=== PATIENT | male | born 1960 | race Caucasian/White ===

== ENCOUNTER 2020-01-29 22:05 | Observation (INO) | payer BC ==
[2020-01-29] MEDS ORDERED: DILTIAZEM HCL/D5W 0 MG/0 ML RTUINJ IV ONE (22:12)
[2020-01-29] MEDS ORDERED: DILTIAZEM HCL INJ 25 MG/5 ML VIAL ONE (22:12)
[2020-01-29] MEDS ORDERED: METOPROLOL TARTRATE PF/INJ 5 MG/5 ML SDV IV ONE (22:19)
[2020-01-29] MEDS ORDERED: ENOXAPARIN SODIUM INJ 100 MG/1 ML DISP.SYRIN SUBCUT ONE (22:31)
[2020-01-29] MEDS ORDERED: METOPROLOL TARTRATE 25 MG TABLET PO ONE (22:33)
--- NOTE | 2020-01-29 22:38 | ER Document Report ---
ED General - General Chief Complaint: Palpitations Stated Complaint: PALPITATIONS - HPI Notes: 59-year-old male history of hypertension, type 2 diabetes now resolved after weight loss presents with approximately 2 hours of palpitations. Patient feels his heart beating fast and irregularly. Patient denies this ever having happened before. Patient says he has no other symptoms and has otherwise felt well until his heartbeat became rapid. Patient denies chest pain, shortness of breath, A. fib/arrhythmia history, cardiac history, lower extremity edema, recent trauma/significant travel ([address])/surgery, hypercoag history in self or family, fever, cough, urinary/GI symptoms, prior bleeding problems - Related Data Allergies/Adverse Reactions: No Known Allergies Allergy (Unverified 01/29/20 22:10) Past Medical History - General Information source: Patient - Social History Smoking Status: Former Smoker Frequency of alcohol use: None Drug Abuse: None Family History: Reviewed & Not Pertinent Patient has homicidal ideation: No Review of Systems - Review of Systems Notes: REVIEW OF SYSTEMS: CONSTITUTIONAL : Denies fever, chills, or sweats. EENT: Denies recent cold/sinus symptoms, denies throat pain CARDIOVASCULAR: Denies chest pain, EMILI RESPIRATORY: Denies cough, denies shortness of breath. GASTROINTESTINAL: Denies abdominal pain, nausea/vomiting. GENITOURINARY: Denies difficulty urinating, painful urination. MUSCULOSKELETAL: Denies neck pain, back pain. SKIN: Denies rash or skin lesions. HEMATOLOGIC : Denies easy bruising or bleeding. LYMPHATIC: Denies swollen, enlarged glands. NEUROLOGICAL: Denies headache, denies change in gait. PSYCHIATRIC: Denies anxiety or stress or depression. Physical Exam - Vital signs Vitals: Temp Pulse Resp BP Pulse Ox 98.8 F 154 H 18 158/110 H 95 01/29/20 22:05 01/29/20 22:05 01/29/20 22:05 01/29/20 22:05 01/29/20 22:05 - Notes Notes: PHYSICAL EXAMINATION: GENERAL: Well-appearing, well-nourished and in no acute distress. HEAD: Atraumatic, normocephalic. EYES: Pupils equal round and appropriate constriction, sclera anicteric, conjunctiva are normal. ENT: nares patent, moist mucous membranes. NECK: Normal range of motion, supple without lymphadenopathy LUNGS: Breath sounds clear to auscultation bilaterally and equal. No wheezes rales or rhonchi. HEART: Accelerated irregular rate without murmurs ABDOMEN: Soft, nontender, no guarding, no masses, no CVAT EXTREMITIES: Normal range of motion, no pitting or edema. No cyanosis. NEUROLOGICAL: Awake, alert, conversing appropriately, moves all extremities spontaneously. PSYCH: Normal mood, normal affect. SKIN: Warm, Dry, normal turgor, no rashes or lesions noted. Course - Re-evaluation Re-evalutation: 01/29/20 22:36 Very well-appearing male with rapid A. fib, hemodynamically stable, no signs on history or physical for this precipitated by sepsis/thyroid storm/PE, will give metoprolol for rate control and anticoagulate and admit for work-up of new onset A. fib/echo. 01/29/20 23:56 Attempted rate control with metoprolol IV and p.o. which improved rate to 140s but given insufficient rate control added diltiazem bolus and drip. Discussed case with Dr. Brody who accepts patient to [facility]. 01/30/20 00:52 At patient's request, I called his and updated her as to what was going on with his care. She asked whether the patient needed to be transferred and I informed her that given that there is no sign that he would need emergent catheterization or other cardiac intervention that the inpatient team here was capable of managing him unless his clinical picture changed. - Vital Signs Vital signs: Temp Pulse Resp BP Pulse Ox 98.3 F 154 H 28 H 128/92 H 98 01/29/20 22:18 01/29/20 22:05 01/29/20 23:51 01/29/20 23:51 01/29/20 23:51 - Laboratory Result Diagrams: 01/29/20 21:43 01/29/20 21:43 Laboratory results interpreted by me: 01/29/20 01/29/20 21:43 21:43 WBC 13.8 H Hgb 17.3 H MCHC 36.1 H Absolute Lymphs (auto) 6.0 H Glucose 236 H Total Protein 8.4 H Albumin 5.1 H Discharge - Discharge Clinical Impression: Rapid atrial fibrillation Condition: Fair Disposition: ADMITTED INPATIENT Admitting Provider: Ronn (Hospitalist) Unit Admitted: [facility]
--- NOTE | 2020-01-29 22:45 | RADIOLOGY REPORT (SQ) ---
XR CHEST 1 VIEW HISTORY: Chest pain. COMPARISON: None. FINDINGS: The heart size is within normal limits. There is no pulmonary vascular congestion. No consolidation, pleural effusion, or pneumothorax is seen. The bony structures are preserved. IMPRESSION: No evidence of acute cardiopulmonary disease.
[2020-01-29 23:00] LABS: INTERNATIONAL RATION (INR) 0.92; PROTHROMBIN TIME 12.3 SEC (11.4-15.4)
[2020-01-29 23:08] LABS: ALBUMIN 5.1 g/dL (3.5-5.0); ALKALINE PHOSPHATASE 85 U/L (38-126); ANION GAP 13 (5-19); ASPARTATE AMINO TRANSFERASE 27 U/L (17-59); BILIRUBIN,TOTAL 0.7 mg/dL (0.2-1.3); BLOOD UREA NITROGEN 17 mg/dL (7-20); CALCIUM 10.1 mg/dL (8.4-10.2); CARBON DIOXIDE 26 mmol/L (22-30); CHLORIDE 99 mmol/L (98-107); CREATINE KINASE 107 U/L (55-170); GLUCOSE 236 mg/dL (75-110); POTASSIUM 3.6 mmol/L (3.6-5.0); TOTAL PROTEIN 8.4 g/dL (6.3-8.2)
[2020-01-29 23:10] LABS: ABSOLUTE BASOPHILS # (AUTO) 0.1 10^3/uL (0.0-0.2); ABSOLUTE EOSINOPHILS # (AUTO) 0.3 10^3/uL (0.0-0.6); ABSOLUTE NEUT (AUTO) 6.3 10^3/uL (1.7-8.2); BASOPHILS % (AUTO) 0.8 % (0-2); EOSINOPHILS % (AUTO) 2.2 % (0-6); HEMOGLOBIN 17.3 g/dL (13.5-17.0); LYMPHOCYTES % (AUTO) 43.9 % (13-45); MEAN CORPUSCULAR HEMOGLOBIN 33.4 pg (27.0-33.4); MEAN CORPUSCULAR HGB CONC 36.1 g/dL (32.0-36.0); MEAN CORPUSCULAR VOLUME 93 fl (80-97); MONOCYTES % (AUTO) 7.4 % (3-13); PLATELET COUNT 346 10^3/uL (150-450); RED BLOOD COUNT 5.19 10^6/uL (4.35-5.55); RED CELL DISTRIBUTION WIDTH 12.2 % (11.5-14.0); SEGMENTED NEUTROPHILS % (AUTO) 45.7 % (42-78); TOTAL CELLS COUNTED % (AUTO) 100 %; WHITE BLOOD COUNT 13.8 10^3/uL (4.0-10.5)
[2020-01-29 23:19] LABS: TROPONIN I < 0.012 ng/mL
[2020-01-29] MEDS ORDERED: NORMAL SALINE 1000 ML 1,000 ML IV ONE (23:22)
[2020-01-29] MEDS ORDERED: DILTIAZEM HCL INJ 25 MG/5 ML VIAL IV ONE (23:45)
[2020-01-29] MEDS ORDERED: DILTIAZEM HCL/D5W 125 MG/125 ML RTUINJ IV PRN (23:47)
[2020-01-29] MEDS ORDERED: ACETAMINOPHEN 325 MG TABLET PO PRN (23:53)
[2020-01-30] MEDS ORDERED: DILTIAZEM HCL/D5W 125 MG/125 ML RTUINJ IV PRN (02:41)
--- NOTE | 2020-01-30 05:50 | PDOC H&P ---
History of Present Illness Admission Date/PCP: 01/30/20 00:09 Patient complains of: Palpitations History of Present Illness: DEIDRA PEREZ is a 59 year old male with a past medical history of diet- controlled diabetes and hypertension who is [place] staying [place] property. Presents approximately 1 hour after the onset of palpitations which began after a meal. In the emergency department he is found to be in A. fib with RVR in the 160s. A trial of Lopressor is attempted without significant improvement he started on IV diltiazem with rate control and referred to the hospitalist for admission. Patient denies previous episode, new medication, we ight loss, heat or cold intolerance, excessive alcohol, caffeine, energy drinks, new prescribed or [id number] medication. He remains in atrial fibrillation with a rate in the 90s denying pain or shortness of breath. Past Medical History Cardiac Medical History: Reports: Hypertension Endocrine Medical History: Reports: Diabetes Mellitus Type 2 Psychiatric Medical History: Denies: Alcohol Dependency, Depression, General Anxiety Disorder, Tobacco Dependency Past Surgical History Past Surgical History: Reports: None Social History Information Source: Patient Lives with: Spouse/Significant other Smoking Status: Former Smoker Frequency of Alcohol Use: Social Drugs: None - Advance Directive Resuscitation Status: Full Code Family History Family History: CAD, Hypertension, Other - Atrial fibrillation Parental Family History Reviewed: Yes Children Family History Reviewed: Yes Sibling(s) Family History Reviewed.: Yes Medication/Allergy Allergies/Adverse Reactions: No Known Allergies Allergy (Unverified 01/29/20 22:10) Review of Systems Constitutional: ABSENT: chills, fever(s), headache(s), weight gain, weight loss Eyes: ABSENT: visual disturbances Ears: ABSENT: hearing changes Cardiovascular: ABSENT: chest pain, dyspnea on exertion, edema, orthropnea, palpitations Respiratory: ABSENT: cough, hemoptysis Gastrointestinal: ABSENT: abdominal pain, constipation, diarrhea, hematemesis, hematochezia, nausea, vomiting Genitourinary: ABSENT: dysuria, hematuria Musculoskeletal: ABSENT: joint swelling Integumentary: ABSENT: rash, wounds Neurological: ABSENT: abnormal gait, abnormal speech, confusion, dizziness, focal weakness, syncope Psychiatric: ABSENT: anxiety, depression, homidical ideation, suicidal ideation Endocrine: ABSENT: cold intolerance, heat intolerance, polydipsia, polyuria Hematologic/Lymphatic: ABSENT: easy bleeding, easy bruising Physical Exam Vital Signs: Temp Pulse Resp BP Pulse Ox 97.8 F 79 20 127/79 H 87 L 01/30/20 03:10 01/30/20 05:18 01/30/20 03:10 01/30/20 05:00 01/30/20 05:18 Intake & Output 01/28/20 01/29/20 01/30/20 11:59 11:59 11:59 Intake Total 1009 Balance 1009 Weight 93 kg General appearance: PRESENT: no acute distress, well-developed, well-nourished, other - Facial sunburn admits recent excessive exposure. Head exam: PRESENT: atraumatic, normocephalic Eye exam: PRESENT: conjunctiva pink, EOMI, PERRLA. ABSENT: scleral icterus Ear exam: PRESENT: normal external ear exam Mouth exam: PRESENT: moist, tongue midline Neck exam: ABSENT: carotid bruit, JVD, lymphadenopathy, thyromegaly Respiratory exam: PRESENT: clear to auscultation wes. ABSENT: rales, rhonchi, wheezes Cardiovascular exam: PRESENT: irregular rhythm. ABSENT: diastolic murmur, rubs, systolic murmur Pulses: PRESENT: normal dorsalis pedis pul Vascular exam: PRESENT: normal capillary refill GI/Abdominal exam: PRESENT: normal bowel sounds, soft. ABSENT: distended, guarding, mass, organolmegaly, rebound, tenderness Rectal exam: PRESENT: deferred Extremities exam: PRESENT: full ROM. ABSENT: calf tenderness, clubbing, pedal edema Neurological exam: PRESENT: alert, awake, oriented to person, oriented to place, oriented to time, oriented to situation, CN II-XII grossly intact. ABSENT: motor sensory deficit Psychiatric exam: PRESENT: appropriate affect, normal mood. ABSENT: homicidal ideation, suicidal ideation Skin exam: PRESENT: dry, intact, warm. ABSENT: cyanosis, rash Results Laboratory Results: 01/29/20 21:43 01/29/20 21:43 01/29/20 01/29/20 01/29/20 21:43 21:43 21:43 WBC 13.8 H RBC 5.19 Hgb 17.3 H Hct 48.0 MCV 93 MCH 33.4 MCHC 36.1 H RDW 12.2 Plt Count 346 Seg Neutrophils % 45.7 Sodium 137.8 Potassium 3.6 Chloride 99 Carbon Dioxide 26 Anion Gap 13 BUN 17 Creatinine 0.82 Est GFR ( Amer) > 60 Glucose 236 H Calcium 10.1 Total Bilirubin 0.7 AST 27 Alkaline Phosphatase 85 Total Protein 8.4 H Albumin 5.1 H TSH 3.28 01/29/20 01/29/20 01/30/20 21:43 21:43 01:44 Creatine Kinase 107 CK-MB (CK-2) 1.60 Troponin I < 0.012 0.024 Impressions: Chest X-Ray 01/29/20 00:00 IMPRESSION: No evidence of acute cardiopulmonary disease. Assessment and Plan - Diagnosis (1) Rapid atrial fibrillation Is this a current diagnosis for this admission?: Yes Plan: No clear underlying cause, continue IV diltiazem, Lovenox, follow-up 2D echo and cardiology consult. (2) Palpitations Is this a current diagnosis for this admission?: Yes Plan: Secondary to #1, follow-up telemetry (3) Polycythemia Is this a current diagnosis for this admission?: Yes Plan: Former smoker, denying heat or cold intolerance, night sweats, consider outpatient work-up. (4) Diabetes Is this a current diagnosis for this admission?: Yes Plan: History of diet-controlled diabetes, hyperglycemia greater than 200, Humalog sliding scale ordered, follow-up A1c - Time Time Spent with patient: 25-34 minutes - Inpatient Certification Medical Necessity: Need Close Monitoring Due to Risk of Patient Decompensation
[2020-01-30 06:54] LABS: HEMATOCRIT 44.4 % (37.9-51.0); HEMOGLOBIN 15.8 g/dL (13.5-17.0); MEAN CORPUSCULAR HGB CONC 35.6 g/dL (32.0-36.0); MEAN CORPUSCULAR VOLUME 93 fl (80-97); PLATELET COUNT 284 10^3/uL (150-450); RED BLOOD COUNT 4.79 10^6/uL (4.35-5.55)
[2020-01-30 07:21] LABS: ANION GAP 9 (5-19); BLOOD UREA NITROGEN 15 mg/dL (7-20); CALCIUM 9.2 mg/dL (8.4-10.2); CARBON DIOXIDE 23 mmol/L (22-30); CHLORIDE 109 mmol/L (98-107); GLUCOSE 114 mg/dL (75-110); POTASSIUM 4.3 mmol/L (3.6-5.0)
[2020-01-30] MEDS ORDERED: DILTIAZEM HCL 60 MG TABLET PO SCH (08:00)
[2020-01-30 08:54] LABS: APPEARANCE,URINE CLEAR; BILIRUBIN,URINE NEGATIVE (NEGATIVE); COLOR,URINE YELLOW; GLUCOSE, URINE NEGATIVE (NEGATIVE); KETONES,URINE NEGATIVE (NEGATIVE); LEUKOCYTE ESTERASE,URINE NEGATIVE (NEGATIVE); NITRITE,URINE NEGATIVE (NEGATIVE); PROTEIN,URINE NEGATIVE (NEGATIVE); URINE SPECIFIC GRAVITY 1.014; UROBILINOGEN,URINE NEGATIVE mg/dL (<2.0)
[2020-01-30] MEDS ORDERED: ENOXAPARIN SODIUM INJ 100 MG/1 ML DISP.SYRIN SUBCUT SCH (10:00)
[2020-01-30] MEDS ORDERED: DOCUSATE SODIUM 100 MG CAPSULE PO SCH (10:00)
[2020-01-30] MEDS ORDERED: AMLODIPINE BESYLATE 5 MG TABLET PO SCH (11:00)
[2020-01-30 11:50] VITALS: BP 133/77
--- NOTE | 2020-01-30 12:19 | PDOC DISCHARGE SUMMARY ---
Impression - Admit/DC Date/PCP Admission Date/Primary Care Provider: 01/30/20 00:09 Discharge Date: 01/30/20 - Discharge Diagnosis (1) Paroxysmal atrial fibrillation with rapid ventricular response Is this a current diagnosis for this admission?: Yes (2) Hypertension Is this a current diagnosis for this admission?: Yes (3) Polycythemia Is this a current diagnosis for this admission?: Yes - Additional Information Resuscitation Status: Full Code Discharge Diet: Regular Discharge Activity: Slowly Increase Activity Prescriptions: Diltiazem HCl [Cardizem 60 mg Tablet] 60 mg PO Q6HP PRN #15 tablet PRN Reason: Aspirin [Ecotrin 325 mg EC Tablet] 325 mg PO DAILY #30 tabec Home Medications: Amlodipine Besylate [Norvasc 5 mg Tablet] 5 mg PO DAILY 01/30/20 Aspirin [Ecotrin 325 mg EC Tablet] 325 mg PO DAILY #30 tabec 01/30/20 Diltiazem HCl [Cardizem 60 mg Tablet] 60 mg PO Q6HP PRN #15 tablet 01/30/20 Multivitamin [Multiple Vitamins] 1 each PO DAILY 01/30/20 [place]-3/Dha/Epa/Fish Oil [Fish Oil 1,000 mg Softgel] 3,000 each PO DAILY 01/30/20 History of Present Illiness History of Present Illness: According to admitting provider: DEIDRA PEREZ is a 59 year old male with a past medical history of diet-controlled diabetes and hypertension who is currently staying at his vacation property. Presents approximately 1 hour after the onset of palpitations which began after a meal. In the emergency department he is found to be in A. fib with RVR in the 160s. A trial of Lopressor is attempted without significant improvement he started on IV diltiazem with rate control and referred to the hospitalist for admission. Patient denies previous episode, new medication, weight loss, heat or cold intolerance, excessive alcohol, caffeine, energy drinks, new prescribed or [id number] medication. He remains in atrial fibrillation with a rate in the 90s denying pain or shortness of breath. Hospital Course Hospital Course: Patient was admitted to the hospital for evaluation and treatment of atrial fibrillation with rapid ventricular response. This episode seems to have been triggered after patient she had a cold smoothie with his , suddenly felt that he had brain freeze and began having palpitations. In the ER he was in A. fib RVR in the 140s. Placed on diltiazem drip and started on Lovenox. This morning, patient converted into sinus bradycardia in the 50s. Patient states that his heart rate is usually in the 50s when he measures it at home as he exercises. He also states that he had a prior history of diabetes mellitus which resolved after he lost a lot of weight from exercising and has been off any medication for the past couple of years and his hemoglobin A1c has maintained within normal. Hemoglobin A1c currently is 5.3. His TSH is normal. Chads vasc score is calculated to be 1 and as such I have put patient on 325 mg of aspirin. Given patient's new onset atrial fibrillation and baseline bradycardia, he will not be able to tolerate daily rate control medications or amiodarone and as such, I am giving patient a prescription of diltiazem IR only to be used on an as-needed basis for recurrent tachycardia. Patient has been instructed to follow-up with her pilates coordinator once he returns back to his home city to have an echocardiogram done there. Physical Exam Vital Signs: Temp Pulse Resp BP Pulse Ox 97.6 F 62 20 133/77 H 99 01/30/20 11:24 01/30/20 11:24 01/30/20 11:24 01/30/20 11:24 01/30/20 11:24 Intake & Output 01/29/20 01/30/20 01/31/20 06:59 06:59 06:59 Intake Total 1030 45 Balance 1030 45 Weight 93 kg General appearance: PRESENT: no acute distress, cooperative Neck exam: ABSENT: JVD Respiratory exam: PRESENT: clear to auscultation wes, unlabored Cardiovascular exam: PRESENT: bradycardia, +S1, +S2. ABSENT: irregular rhythm, systolic murmur, tachycardia Extremities exam: ABSENT: pedal edema, +1 edema, +2 edema Neurological exam: PRESENT: alert, awake, oriented to person, oriented to place, oriented to time Results Laboratory Results: WBC 11.0 10^3/uL (4.0-10.5) H 01/30/20 06:13 RBC 4.79 10^6/uL (4.35-5.55) 01/30/20 06:13 Hgb 15.8 g/dL (13.5-17.0) 01/30/20 06:13 Hct 44.4 % (37.9-51.0) 01/30/20 06:13 MCV 93 fl (80-97) 01/30/20 06:13 MCH 33.0 pg (27.0-33.4) 01/30/20 06:13 MCHC 35.6 g/dL (32.0-36.0) 01/30/20 06:13 RDW 12.0 % (11.5-14.0) 01/30/20 06:13 Plt Count 284 10^3/uL (150-450) 01/30/20 06:13 Lymph % (Auto) 43.9 % (13-45) 01/29/20 21:43 [place] % (Auto) 7.4 % (3-13) 01/29/20 21:43 Eos % (Auto) 2.2 % (0-6) 01/29/20 21:43 Baso % (Auto) 0.8 % (0-2) 01/29/20 21:43 Absolute Neuts (auto) 6.3 10^3/uL (1.7-8.2) 01/29/20 21:43 Absolute Lymphs (auto) 6.0 10^3/uL (0.5-4.7) H 01/29/20 21:43 Absolute Monos (auto) 1.0 10^3/uL (0.1-1.4) 01/29/20 21:43 Absolute Eos (auto) 0.3 10^3/uL (0.0-0.6) 01/29/20 21:43 Absolute Basos (auto) 0.1 10^3/uL (0.0-0.2) 01/29/20 21:43 Seg Neutrophils % 45.7 % (42-78) 01/29/20 21:43 PT 12.3 SEC (11.4-15.4) 01/29/20 21:43 INR 0.92 01/29/20 21:43 Sodium 140.7 mmol/L (137-145) 01/30/20 06:13 Potassium 4.3 mmol/L (3.6-5.0) 01/30/20 06:13 Chloride 109 mmol/L (98-107) H 01/30/20 06:13 Carbon Dioxide 23 mmol/L (22-30) 01/30/20 06:13 Anion Gap 9 (5-19) 01/30/20 06:13 BUN 15 mg/dL (7-20) 01/30/20 06:13 Creatinine 0.62 mg/dL (0.52-1.25) 01/30/20 06:13 Est GFR ( Amer) > 60 (>60) 01/30/20 06:13 Est GFR (MDRD) Non-Af > 60 (>60) 01/30/20 06:13 Glucose 114 mg/dL (75-110) H 01/30/20 06:13 Hemoglobin A1c % 5.3 % (4.7-6.0) 01/30/20 06:13 Calcium 9.2 mg/dL (8.4-10.2) 01/30/20 06:13 Total Bilirubin 0.7 mg/dL (0.2-1.3) 01/29/20 21:43 Direct Bilirubin 0.0 mg/dL (0.0-0.4) 01/29/20 21:43 Neonat Total Bilirubin Not Reportable 01/29/20 21:43 Neonat Direct Bilirubin Not Reportable 01/29/20 21:43 Neonat Indirect Bili Not Reportable 01/29/20 21:43 AST 27 U/L (17-59) 01/29/20 21:43 ALT 22 U/L (<50) 01/29/20 21:43 Alkaline Phosphatase 85 U/L (38-126) 01/29/20 21:43 Creatine Kinase 107 U/L (55-170) 01/29/20 21:43 CK-MB (CK-2) 1.60 ng/mL (<4.55) 01/29/20 21:43 Troponin I 0.029 ng/mL 01/30/20 06:13 Total Protein 8.4 g/dL (6.3-8.2) H 01/29/20 21:43 Albumin 5.1 g/dL (3.5-5.0) H 01/29/20 21:43 TSH 3.28 uIU/mL (0.47-4.68) 01/29/20 21:43 Urine Color YELLOW 01/30/20 08:30 Urine Appearance CLEAR 01/30/20 08:30 Urine pH 6.0 (5.0-9.0) 01/30/20 08:30 Ur Specific [place] 1.014 01/30/20 08:30 Urine Protein NEGATIVE mg/dL (NEGATIVE) 01/30/20 08:30 Urine Glucose (UA) NEGATIVE mg/dL (NEGATIVE) 01/30/20 08:30 Urine Ketones NEGATIVE mg/dL (NEGATIVE) 01/30/20 08:30 Urine Blood NEGATIVE (NEGATIVE) 01/30/20 08:30 Urine Nitrite NEGATIVE (NEGATIVE) 01/30/20 08:30 Urine Bilirubin NEGATIVE (NEGATIVE) 01/30/20 08:30 Urine Urobilinogen NEGATIVE mg/dL (<2.0) 01/30/20 08:30 Ur Leukocyte Esterase NEGATIVE (NEGATIVE) 01/30/20 08:30 Urine WBC (Auto) 0 /HPF 01/30/20 08:30 U Hyaline Cast (Auto) 1 /LPF 01/30/20 08:30 Urine Mucus (Auto) RARE /LPF 01/30/20 08:30 Urine Ascorbic Acid NEGATIVE (NEGATIVE) 01/30/20 08:30 SARS-CoV-2 (PCR) NEGATIVE (NEGATIVE) 01/30/20 00:40 01/29/20 01/30/20 01/30/20 21:43 01:44 06:13 CK-MB (CK-2) 1.60 Troponin I < 0.012 0.024 0.029 Impressions: Chest X-Ray 01/29/20 00:00 IMPRESSION: No evidence of acute cardiopulmonary disease. Plan Time Spent: Greater than 30 Minutes Stroke Is this a Stroke Patient?: No Acute Heart Failure - Is this a Heart Failure Patient?: No
--- NOTE | 2020-01-30 23:37 | EKG REPORT ---
SEVERITY:- NORMAL ECG - SINUS RHYTHM : Confirmed by: Naseem Barrera 30-Jan-2020 23:36:30
--- NOTE | 2020-01-30 23:38 | EKG REPORT ---
SEVERITY:- ABNORMAL ECG - ATRIAL FIBRILLATION BORDERLINE PROLONGED QT INTERVAL : Confirmed by: Naseem Barrera 30-Jan-2020 23:37:41
--- NOTE | 2020-01-30 23:38 | EKG REPORT ---
SEVERITY:- ABNORMAL ECG - ATRIAL FLUTTER WITH 2:1 CONDUCTION : Confirmed by: Naseem Barrera 30-Jan-2020 23:37:30
[2020-01-31] MEDS ORDERED: ASPIRIN 325 MG TABLET, ENT COATED PO SCH (10:00)
== END 2020-01-30 15:00 | disposition home or self-care (01) ==
LOC: ER 22:05 → EH 01-30 00:09 → INTOOBSV 01-30 00:09 → 3S 01-30 03:07
PROVIDERS: ADMIT Internal Medicine; ATTEND Internal Medicine
DX: I48.0 Paroxysmal atrial fibrillation (principal); I10 Essential (primary) hypertension; D75.1 Secondary polycythemia; E11.65 Type 2 diabetes mellitus with hyperglycemia; Z03.818 Encounter for observation for suspected exposure to other biological agents ruled out; Z79.899 Other long term (current) drug therapy; Z86.39 Personal history of other endocrine, nutritional and metabolic disease; Z87.891 Personal history of nicotine dependence; Z82.49 Family history of ischemic heart disease and other diseases of the circulatory system
CPT/HCPCS: 93005 ×2; 99285; 36415 ×2; 82553; 82550; 84443; 85025; 85027; 85610; 87635; 80048; 80053; 81001; 84484 ×2; 83036; 85379; 71045; 93010 ×2; J3490 ×3; J7030; J1650; C9803; G0378